=== PATIENT | male | born 1960 | race Caucasian/White ===

== ENCOUNTER 2016-12-02 06:52 | Day surgery (SDC) | payer OTHER ==
[2016-11-25 12:12] VITALS: BMI 29.9
[2016-12-02] MEDS ORDERED: PROPOFOL 20 ML ONE ×2 (06:57)
[2016-12-02] MEDS ORDERED: LIDOCAINE HCL/PF 2% SDV 5ML VIAL ONE (07:06)
[2016-12-02 09:24] VITALS: BP 130/78; PULSE 77; TEMP 98
== END 2016-12-02 09:30 | disposition home or self-care (01) ==
LOC: FASU-ENDO 06:52
PROVIDERS: ATTEND Internal Medicine Gastroenterology
PROC: 0DJD8ZZ Inspection of Lower Intestinal Tract, Via Natural or Artificial Opening Endoscopic (ICD-10-PCS; principal; 2016-12-02 08:33)
DX: Z12.11 Encounter for screening for malignant neoplasm of colon (principal); Z80.0 Family history of malignant neoplasm of digestive organs